=== PATIENT | male | born 1950 | race Caucasian/White ===

== ENCOUNTER 2017-11-06 12:45 | Emergency (ER) | payer OTHER ==
[~2017-11-06] VITALS: Ht 182.9 cm; Wt 99.8 kg
[~2017-11-06 12:45] MED LIST: ALBU2.5V52 INH; ALBU8.5H2 IH; CALC-656 PO; CEFD300C3 PO; GLUC-113 PO; LISI1TAB6 PO; LORA10TA7 PO; MULT1CAP27 PO; OMG1KC PO; OXB5T PO; PRCD5U PO; PRD20T PO; RANI150T11 PO; RANI75TA30 PO; TIMO5DRO17 OU
--- OUTSIDE RECORDS SUMMARY | 2017-11-06 12:50 | XMS REPORT | Continuity of Care Document ---
Author Author [facility] Organization [facility] Address Unknown Phone Unavailable Allergies Active Description Code Type Severity Reaction Onset Reported/Identified Relationship to Patient Clinical Status Yes No Known Drug Allergies [id number] Drug Allergy Unknown N/A 05/22/2012 Medications There is no data. Problems Date Dx Coded Attending Type Code Diagnosis Diagnosed By 05/22/2012 Ot 211.4 05/22/2012 Ot 562.10 05/22/2012 Ot V12.72 05/22/2012 Ot V16.0 09/12/2014 MIRA ODOM Ot 490 09/12/2014 MIRA ODOM Ot 786.2 09/12/2014 Ot V72.84 09/19/2014 Ot V72.84 10/21/2015 Ot V72.84 10/29/2015 Ot V72.84 10/29/2015 LUCI ROCKWELL, KACY Ot Z01.818 10/29/2015 LUCI ROCKWELL, KACY Ot Z86.010 10/29/2015 LUCI ROCKWELL, KACY Ot K57.90 10/29/2015 KACY VERMA MD Ot K63.5 10/29/2015 KACY VERMA MD Ot Z12.11 12/02/2015 Ot V72.84 12/02/2015 KACY VERMA MD Ot Z01.818 12/02/2015 KACY VERMA MD Ot Z86.010 Procedures There is no data. Results There is no data. Encounters ACCT No. Visit Date/Time Discharge Status Pt. Type Provider Facility Loc./Unit Complaint [id number] 04/20/2016 16:15:00 04/20/2016 23:59:59 CLS Outpatient REGINE DANIELS [facility] RAD [id number] 04/20/2016 11:07:00 04/20/2016 23:59:59 CLS Outpatient REGINE DANIELS [facility] OCC ON FORKLIFT THAT FELL APPROX 4' [id number] 10/29/2015 08:55:00 10/29/2015 11:30:00 DIS Outpatient KACY VERMA MD [facility] [id number] 10/27/2015 05:36:00 10/27/2015 23:59:59 CLS Outpatient KACY VERMA MD [facility] PREOP [id number] 09/12/2014 20:45:00 09/12/2014 23:15:00 DIS Emergency MIRA ODOM [facility] ER [id number] 05/22/2012 10:10:00 Document Registration [id number] 05/19/2012 08:09:00 Document Registration
--- NOTE | 2017-11-06 14:33 | ED EENT ---
History of Present Illness General Chief Complaint: Oral/Throat Problems Stated Complaint: SORE THROAT/COUGH Nursing Triage Note: AMBULATED TO ROOM 09. COMPLAINS OF COLD LIKE SX FOR TWO DAYS BUT WOKE UP THIS AM WITH A SORE THROAT AND BAD COUGH. DENIES FEVER. Source: patient Exam Limitations: no limitations History of Present Illness Date Seen by Provider: Nov 06, 2017 Time Seen by Provider: 14:28 Initial Comments This 67-year-old white male presents with a history of cough, congestion, and sore throat for the last 2 days. The patient denies fever. He has had no associated headache, stiff neck, or photophobia. The patient denies vomiting or diarrhea. Allergies and Home Medications Allergies Coded Allergies: No Known Drug Allergies (Unverified , 05/22/12) Home Medications Calcium Carbonate/Vitamin D3 1 Each Tablet, 1 EACH PO DAILY, (Reported) Gluc 2KCL/Chondr/Wally Hy/Hy Ac 1 Each Capsule, 1 EACH PO DAILY, (Reported) Hctz/Lisinopril 1 Each Tablet, 1 EACH PO DAILY, (Reported) Multivitamins 1 Each Capsule, 1 EACH PO DAILY, (Reported) Oxybutynin Chloride 5 Mg Tab, 5 MG PO BID, (Reported) Ranitidine HCl 150 Mg Tablet, 150 MG PO DAILY, (Reported) Timolol Maleate 5 Ml Drops, 1 DROP OU DAILY, (Reported) Review of Systems Constitutional: No chills, No fever Eyes: Denies Photophobia Ears: Denies Pain Nose: denies epistaxis Throat: see HPI, pain Respiratory: see HPI, cough, No short of breath Cardiovascular: No chest pain, No palpitations Gastrointestinal: No abdominal pain, No diarrhea, No nausea, No vomiting Musculoskeletal: No back pain Skin: No rash Neurological: No Symptoms Reported Hematologic/Lymphatic: No Symptoms Reported Immunological/Allergic: no symptoms reported Past Wugmmfm-Ixxmqu-Ugckpf Hx Patient Social History Alcohol Use: Denies Use Recreational Drug Use: No Smoking Status: Former Smoker Recent Foreign Travel: No Contact w/Someone Who Travel: No Recent Infectious Disease Expo: No Immunizations Up To Date Date of Pneumonia Vaccine: Sep 12, 2009 Date of Influenza Vaccine: Jun 12, 2015 Seasonal Allergies Seasonal Allergies: No Surgeries History of Surgeries: No Respiratory History of Respiratory Disorde: No (hx of bronchitis) Respiratory Disorders: Sleep Apnea Cardiovascular History of Cardiac Disorders: Yes Cardiac Disorders: Hypertension Neurological History of Neurological Disord: No Genitourinary History of Genitourinary Disor: No Gastrointestinal History of Gastrointestinal Di: No Musculoskeletal History of Musculoskeletal Dis: No Endocrine History of Endocrine Disorders: No Cancer History of Cancer: No Psychosocial History of Psychiatric Problem: No Integumentary History of Skin or Integumenta: No Blood Transfusions History of Blood Disorders: No Reviewed Nursing Assessment Reviewed/Agree w Nursing PMH: Yes Family Medical History Significant Family History: No Pertinent Family Hx Physical Exam Vital Signs Vital Signs - First Documented 11/06/17 13:28 Temp 98.4 Pulse 80 Resp 18 B/P (MAP) 141/87 (105) Pulse Ox 95 O2 Delivery Room Air General Appearance: WD/WN, no apparent distress Eyes: bilateral eye normal inspection Ears: bilateral ear TM normal Nose: normal inspection Mouth/Throat: pharynx tenderness, uvula swelling Neck: non-tender, supple, normal inspection Cardiovascular: normal peripheral pulses, regular rate, rhythm Respiratory: rales Gastrointestinal: normal bowel sounds, non tender, soft Neurologic/Psychiatric: no motor/sensory deficits, alert, normal mood/affect, oriented x 3 Skin: normal color, warm/dry Progress/Results/Core Measures Results/Orders Lab Results Laboratory Tests Test 11/06/17 14:58 11/06/17 15:10 Range/Units Group A Streptococcus Screen NEGATIVE NEGATIVE White Blood Count 8.6 4.3-11.0 10^3/uL Red Blood Count 4.93 4.35-5.85 10^6/uL Hemoglobin 15.7 13.3-17.7 G/DL Hematocrit 46 40-54 % Mean Corpuscular Volume 94 80-99 FL Mean Corpuscular Hemoglobin 32 25-34 PG Mean Corpuscular Hemoglobin Concent 34 32-36 G/DL Red Cell Distribution Width 13.9 10.0-14.5 % Platelet Count 176 130-400 10^3/uL Mean Platelet Volume 11.4 H 7.4-10.4 FL Neutrophils (%) (Auto) 74 42-75 % Lymphocytes (%) (Auto) 17 12-44 % Monocytes (%) (Auto) 8 0-12 % Eosinophils (%) (Auto) 1 0-10 % Basophils (%) (Auto) 0 0-10 % Neutrophils # (Auto) 6.3 1.8-7.8 X 10^3 Lymphocytes # (Auto) 1.4 1.0-4.0 X 10^3 Monocytes # (Auto) 0.7 0.0-1.0 X 10^3 Eosinophils # (Auto) 0.1 0.0-0.3 10^3/uL Basophils # (Auto) 0.0 0.0-0.1 10^3/uL My Orders Orders - JEREMIE SEGOVIA MD Cbc With Automated Diff (11/06/17 14:27) Chest Pa/Lat (2 View) (11/06/17 14:27) Rapid Strep A Screen (11/06/17 14:27) Vital Signs/I&O Vital Sign - Last 12Hours 11/06/17 13:28 Temp 98.4 Pulse 80 Resp 18 B/P (MAP) 141/87 (105) Pulse Ox 95 O2 Delivery Room Air Blood Pressure Mean: 105 Progress Note : Time: 15:28 Progress Note Patient's rapid strep screen was negative. His white count was unremarkable. Patient's chest x-ray failed to demonstrate evidence of an acute infiltrate. Departure Impression Impression: Primary Impression: Bronchitis Disposition: 01 HOME, SELF-CARE Condition: Unchanged Departure-Patient Inst. Decision time for Depature: 15:30 Referrals: SHIRA ROBINS MD (PCP/Family) Primary Care Physician Patient Instructions: Acute Bronchitis in Adults Add. Discharge Instructions: Z-[place] as prescribed. Tussionex for cough. Close follow-up with your doctor. Call his office tomorrow. Return if any problems or questions. All discharge instructions reviewed with patient and/or family. Voiced understanding. JEREMIE SEGOVIA MD Nov 06, 2017 14:32
--- NOTE | 2017-11-06 15:12 | Diagnostic Imaging Report ---
CHEST PA/LAT (2 VIEW) Indication: Flulike symptoms for 2 days. Source throat and cough. Comparison: 09/12/2014. Findings: No focal pneumonic consolidation, pleural effusion or pneumothorax. Normal heart size and pulmonary vasculature. 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 Impression: No acute cardiopulmonary process. Dictated by: Dictated on workstation # [id number]
[2017-11-06 15:21] LABS: BASOPHILS % (AUTO) 0 % (0-10); EOSINOPHILS # (AUTO) 0.1 10^3/uL (0.0-0.3); EOSINOPHILS % (AUTO) 1 % (0-10); HEMATOCRIT 46 % (40-54); HEMOGLOBIN 15.7 G/DL (13.3-17.7); LYMPHOCYTES # (AUTO) 1.4 X 10^3 (1.0-4.0); LYMPHOCYTES % (AUTO) 17 % (12-44); MEAN CORPUSCULAR HEMOGLOBIN 32 PG (25-34); MEAN CORPUSCULAR HGB CONC 34 G/DL (32-36); MEAN CORPUSCULAR VOLUME 94 FL (80-99); MEAN PLATELET VOLUME 11.4 FL (7.4-10.4); MONOCYTES # (AUTO) 0.7 X 10^3 (0.0-1.0); MONOCYTES % (AUTO) 8 % (0-12); NEUTROPHILS # (AUTO) 6.3 X 10^3 (1.8-7.8); NEUTROPHILS % (AUTO) 74 % (42-75); PLATELET COUNT 176 10^3/uL (130-400); RED BLOOD COUNT 4.93 10^6/uL (4.35-5.85); RED CELL DISTRIBUTION WIDTH 13.9 % (10.0-14.5); WHITE BLOOD COUNT 8.6 10^3/uL (4.3-11.0)
[2017-11-06 15:39] VITALS: BP 177/108
== END 2017-11-06 15:39 | disposition home or self-care (01) ==
LOC: EDUNIT# 12:45 → ER 12:46
DX: J40 Bronchitis, not specified as acute or chronic (principal); G47.30 Sleep apnea, unspecified; I10 Essential (primary) hypertension; Z87.891 Personal history of nicotine dependence
CPT/HCPCS: 36415; 71046; 85025; 87430

== ENCOUNTER → 2018-08-21 | Outpatient (CLI) | payer OTHER ==
--- NOTE | 2018-08-21 10:55 | Diagnostic Imaging Report ---
EXAMINATION: Scrotal ultrasound. INDICATION: Swollen testicle. TECHNIQUE: Spectral and color flow imaging of the testicles was performed. COMPARISON: There are no prior studies available for comparison. FINDINGS: Both testicles were identified. The right testicle measures 4.7 x 3.0 x 2.9 cm while the left testicle is estimated to be 4.6 x 2.3 x 3.5 cm. There is no evidence for a solid testicular mass nor is there any sign of torsion. There is a prominent area of mixed echogenicity within the left testicle. This is probably related to a tubular ectasia (rete testis). There is no sign of epididymitis. The epididymis on the right was difficult to identify, however. There is a large hydrocele on the right. There is no significant hydrocele formation on the left. IMPRESSION: 1. There is no evidence for a solid mass or for torsion. 2. The area of altered echogenicity within the left testicle is felt to relate to a rete testis. This is a benign condition. 3. There is a large hydrocele on the right. Dictated by: Dictated on workstation # [id number]
== END ==
LOC: RAD 08:18
PROVIDERS: ATTEND Nurse Practitioner
DX: N43.3 Hydrocele, unspecified (principal)
CPT/HCPCS: 76870

== ENCOUNTER 2019-11-05 05:52 | Outpatient (CLI) | payer MEDICARE, OTHER ==
[~2019-11-05] VITALS: Ht 182 cm; Wt 105.0 kg
[~2019-11-05 05:52] MED LIST changes: -ACHD5005 PO; -AMLO5TAB4 PO; -CALC600T12 PO; -CEPH-507 PO; -CETI10TA17 PO; -OXYB5TAB13 PO; -SERT50TA2 PO; -TIMO5DRO8 OP
[2019-11-05] MEDS ORDERED: CALC600T12 PO (15:16)
[2019-11-05] MEDS ORDERED: SERT50TA2 PO (15:16)
[2019-11-05] MEDS ORDERED: TIMO5DRO8 OP (15:16)
[2019-11-05] MEDS ORDERED: AMLO5TAB4 PO (15:16)
[2019-11-05] MEDS ORDERED: OXYB5TAB13 PO (15:16)
[2019-11-05] MEDS ORDERED: CETI10TA17 PO (15:16)
[2019-11-05] MEDS ORDERED: MULT1CAP27 PO (15:16)
== END 2019-11-05 15:24 | disposition home or self-care (01) ==
LOC: PREOP 05:52
PROVIDERS: ATTEND Urology
DX: Z01.818 Encounter for other preprocedural examination (principal)

== ENCOUNTER → 2019-11-05 | Outpatient (CLI) | payer MEDICARE, OTHER ==
[~2019-11-05] MED LIST changes: +ACHD5005 PO; +AMLO5TAB4 PO; +CALC600T12 PO; +CEPH-507 PO; +CETI10TA17 PO; +OXYB5TAB13 PO; +SERT50TA2 PO; +TIMO5DRO8 OP
--- NOTE | 2019-11-05 10:02 | Diagnostic Imaging Report ---
PROCEDURE: US Scrotum. TECHNIQUE: Multiple real-time grayscale images were obtained over the scrotum in various projections bilaterally. INDICATION: Testicular swelling and hydrocele. Right testicle measures 6.3 x 2.4 x 2.9 cm and the left testicle measures 6.0 x 3.0 x 3.2 cm. Both testes show homogeneous echotexture. No discrete testicular mass is seen. There is blood flow to both testes. Epididymides are hard to visualize. There are very large hydroceles bilaterally. No varicocele is seen. IMPRESSION: 1. No evidence of testicular mass or vascular compromise. 2. Large bilateral hydroceles. Dictated by: Dictated on workstation # [id number]
== END ==
LOC: RAD 08:34
PROVIDERS: ATTEND Urology
DX: N43.3 Hydrocele, unspecified (principal)
CPT/HCPCS: 76870

== ENCOUNTER 2019-11-07 09:30 | Day surgery (SDC) | payer MEDICARE, OTHER ==
[2019-11-07] VITALS (11 sets, daily range): BP systolic 104–142; BP diastolic 53–88
[~2019-11-07] VITALS: Ht 182 cm; Wt 105.0 kg
[~2019-11-07 09:30] MED LIST changes: +AMLO5TAB4 PO; +CALC600T12 PO; +CETI10TA17 PO; +OXYB5TAB13 PO; +SERT50TA2 PO; +TIMO5DRO8 OP
--- NOTE | 2019-11-07 09:46 | Progress Note-Pre Operative ---
Pre-Operative Progress Note H&P Reviewed The H&P was reviewed, patient examined and no changes noted. Date Seen by Provider: Nov 07, 2019 Time Seen by Provider: :46 Date H&P Reviewed: Nov 07, 2019 Time H&P Reviewed: :46 Pre-Operative Diagnosis: RT LARGE HYDROCELE SUZIE GARNICA MD Nov 07, 2019 09:46
[2019-11-07] MEDS ORDERED: LIDOCAINE PF 2% 5 ML (XYLOCAINE) VIAL ONE (09:52)
[2019-11-07] MEDS ORDERED: proPOfol 200 MG/20 ML (DIPRIVAN) VIAL IV ONE (09:52)
[2019-11-07] MEDS ORDERED: ONDANSETRON 4 MG/2 ML (SDV) Z0FRAN ONE (09:52)
[2019-11-07] MEDS ORDERED: LACTATED RINGERS 1,000 ML IV PRN (09:53)
[2019-11-07] MEDS ORDERED: fentaNYL INJECTION 100 MCG/2 ML AMP ONE (09:53)
[2019-11-07] MEDS ORDERED: MIDAZOLAM 2 MG/2 ML (VERSED) VIAL ONE (09:53)
[2019-11-07] MEDS ORDERED: ceFAZolin INJECTION 1,000 MG in WATER (STERILE) FOR INJECTION 10 ML IV ONE (10:00)
[2019-11-07] MEDS ORDERED: SEVOFLURANE (ULTANE) 15 ML INHAL SOLN ONE ×2 (10:01→11:00)
[2019-11-07] MEDS ORDERED: GLYCOPYRROLATE 0.2 MG/ML (ROBINUL) 2 ML VIAL ONE (10:30)
[2019-11-07] MEDS ORDERED: NEOSTIGMINE 3 MG/3 ML VIAL ONE (10:30)
[2019-11-07] MEDS ORDERED: ROCURONIUM 10 MG/ML 5 ML SYRINGE IV ONE (10:49)
--- NOTE | 2019-11-07 11:05 | Progress Note-Post Operative ---
Post-Operative Progess Note Surgeon (s)/Personal Driver (s) Surgeon SUZIE GARNICA MD Personal Driver: NONE Pre-Operative Diagnosis RT LARGE HYDROCELE Post-Operative Diagnosis SAME Procedure & Operative Findings Date of Procedure 11/07/19 Procedure Performed/Findings RT HYDROCELECTOMY Anesthesia Type GENERAL Estimated Blood Loss Estimated blood loss (mL): 50CC Specimens/Packing Specimens Removed RT HYDROCELE SAC Packin/" RICKI DRAIN SUZIE GARNICA MD Nov 07, 2019 11:05
--- NOTE | 2019-11-07 11:08 | Discharge Inst-Urology ---
Discharge Inst-Urology Reconcile Patient Problems Problems Reviewed?: Yes Final Diagnosis RT LARGE HYDROCELE Patient Instructions/Follow Up Plan/Assessment/Instructions Please make appointment to been seen in office in 2 weeks. Rest till then and wear scrotal support Ice to scrotum in RR and at home till tomorrow am and then prn Come to office tomorrow 10 am to DC drain then can start shoers, no baths Keep bowels soft and moving Increase oral fluids for 48 hours and then as needed. Diet as tolerated. If questions or concerns contact your physician Or seek help at emergency department. SUZIE GARNICA MD Nov 07, 2019 11:08
[2019-11-07] MEDS ORDERED: morphine INJ 10 MG/ML 1ML (SYR OR VIAL) IVP ONE (11:15)
[2019-11-07] MEDS ORDERED: MEPERIDINE (DEMEROL) INJ 50 MG/ML IVP ONE (11:15)
[2019-11-07] MEDS ORDERED: ONDANSETRON 4 MG/2 ML (SDV) Z0FRAN IVP PRN (11:15)
[2019-11-07] MEDS ORDERED: CEPH-507 PO (12:53)
[2019-11-07] MEDS ORDERED: ACHD5005 PO (12:53)
--- NOTE | 2019-11-07 13:15 | Anesthesia-General Post-Op ---
General Patient Condition Mental Status/LOC: Same as Preop Cardiovascular: Satisfactory Nausea/Vomiting: Absent Respiratory: Satisfactory Pain: Controlled Complications: Absent Post Op Complications Complications None Follow Up Care/Instructions Patient Instructions None needed. Anesthesia/Patient Condition Patient Condition Patient is doing well, no complaints, stable vital signs, no apparent adverse anesthesia problems. No complications reported per nursing. RACHID WHITFIELD CRNA Nov 07, 2019 13:15
--- NOTE | 2019-11-07 15:35 | OPERATIVE REPORT ---
DATE OF SERVICE: 11/07/2019 PREOPERATIVE DIAGNOSIS: Large right hydrocele. POSTOPERATIVE DIAGNOSIS: Large right hydrocele. OPERATION PERFORMED: Right hydrocelectomy. SURGEON: Suzei Garnica MD ANESTHESIA: General. COMPLICATIONS: None. DESCRIPTION OF PROCEDURE: Under satisfactory general anesthesia, the patient in supine position, genitalia, abdomen and thigh were prepped and draped in the usual sterile fashion. An incision was made in the medial raphae carried through the right scrotal compartment. Bleeders were cauterized as the dissection was proceeding. A large amount of hydrocele fluid clear serous type was suctioned. There was a large hydrocele sac. It was excised using the Bovie. Bleeders were cauterized or ligated with 2-0 chromic catgut ligature. Hemostasis was complete. The testicle was kind of small, but essentially okay. The hydrocele sac remnant was everted behind the spermatic cord and sutured with a running 2-0 chromic catgut. Hemostasis was complete. The testicle was replaced into the scrotum that was drained with a quarter of an inch Kushal drain brought through a separate stab wound at the bottom of the scrotum secured in position with a 2-0 silk suture. Closure was performed in two layers, the dartos with a running 2-0 chromic catgut and the skin was interrupted 4-0 Vicryl. Fluffs Telfa dressing and scrotal support was applied. Estimated blood loss was 50 mL, none of which was replaced. Needle, sponge, instrument count correct x2. The patient tolerated the procedure and anesthesia well and was sent to recovery room in stable condition. Job ID: [id number] DocumentID: [id number] Dictated Date: 11/07/2019 11:12:26 Checkerer Hand Date: 11/07/2019 15:34:22 Dictated By: SUZIE GARNICA MD
== END 2019-11-07 13:30 | disposition home or self-care (01) ==
LOC: SDC 09:30
PROVIDERS: ATTEND Urology
DX: N43.3 Hydrocele, unspecified (principal); Z11.2 Encounter for screening for other bacterial diseases; E78.5 Hyperlipidemia, unspecified; G47.33 Obstructive sleep apnea (adult) (pediatric); N19 Unspecified kidney failure; N40.1 Benign prostatic hyperplasia with lower urinary tract symptoms; N32.81 Overactive bladder; I10 Essential (primary) hypertension; H40.9 Unspecified glaucoma; N52.9 Male erectile dysfunction, unspecified; Z79.899 Other long term (current) drug therapy; F32.9 Major depressive disorder, single episode, unspecified; E66.9 Obesity, unspecified; Z68.32 Body mass index [BMI] 32.0-32.9, adult
CPT/HCPCS: 87081

== ENCOUNTER → 2020-07-30 | Outpatient (CLI) | payer MEDICARE, OTHER ==
[~2020-07-30] MED LIST changes: +ACHD5005 PO; -CALC600T12 PO; +CEPH-507 PO; +CLC600T PO
--- NOTE | 2020-07-31 09:47 | NUR ---
Notified of COVID positive test.
== END ==
LOC: LABNPT 05:17
PROVIDERS: ATTEND Internal Medicine
DX: U07.1 COVID-19 (principal)
CPT/HCPCS: 87635